=== PATIENT | male | born 1960 | race Caucasian/White ===

== ENCOUNTER 2016-08-29 14:53 | Outpatient (CLI) | payer MEDICARE, BC ==
[~2016-08-29] VITALS: Ht 162.6 cm; Wt 44.1 kg
[2016-08-29 15:50] VITALS: BP 94/67; PULSE 80; RESP 18; Ht 162.6 cm; Wt 44.1 kg
[2016-08-29] MEDS ORDERED: LACT20SO2 PO (16:08)
[2016-08-29] MEDS ORDERED: FURO40TA4 PO (16:08)
[2016-08-29] MEDS ORDERED: PANT40TA3 PO (16:08)
[2016-08-29] MEDS ORDERED: AMLO-147 PO (16:08)
[2016-08-29] MEDS ORDERED: HYDR-906 PO (16:08)
[2016-08-29] MEDS ORDERED: BACTDS PO (16:08)
--- NOTE | 2016-08-29 16:08 | PN ---
Date/Time of Note Date/Time of Note DATE: 08/29/16 TIME: 16:01 Outpatient Progress Note Chief Complaint Cirrhosis/anemia/malnutrition/esophageal varices/hypotension HPI Cirrhosis/patient has cirrhosis of liver, patient has ascites, patient had multiple time paracentesis, Anemia/history of anemia, slight weakness and tiredness, no hematemesis or melena, no bruises, slight fatigue, Malnutrition/patient is severely malnourished man, wasting of the upper and lower extremity muscles, Esophageal varices/patient has an esophageal varices, no hematemesis or melena, Hypotension/patient has slight low blood pressure, asymptomatic at present, Renal insufficiency/patient has chronic renal insufficiency, stage III, no nausea vomiting or pruritus, Review of Systems Const: No Fever, no chills, no Wt. loss, no Fatigue, normal appetite, no diaphoresis. Eyes: No pain, no discharge, no redness, no visual change, no foreign body. ENT: No pain, no bleeding, no congestion, no sore throat, no dysphagia, no discharge or rhinitis. Lymph: No adenopathy, no tender nodes, no lymphedema. Resp: No SOB, no cough, no sputum, no wheezing, no chest pain. CV: No chest pain, no palpitaions, no AIKEN, no PND, no edema. GI: Normal appetite, no pain, no nausea, no vomiting, no diarrhea, no blood, no constipation. Slight abdominal distention, and ascites, : No frequency, no urgency, no dysuria, no hematuria, no flank pain, no discharge, no bleeding. Musc: No bone/joint pain, no back pain, no neck pain, no knee pain, no restricted ROM. Skin: No rash, no skin lesions, no erythema, no laceration, no bruising, no pruritus. Neuro: No GUAMAN, no dizziness, no syncope, no seizure, no focal-weakness. Endo: No polyuria, no polydypsia, no dry-skin, no temp-intolerance. Psych: No hallucinations, no depression, no anxiety, no suicidal ideation. Ext: No edema, no pain, no ulcer, generalized weakness., wasting of muscles of upper and lower extremities, Physical Exam General Appearance: A 56 year-old [m male who appears well-developed, well- nourished, in no acute distress. HEENT: Head normocephalic, atraumatic. Pupils equal, round, reactive to light and accommodate. Sclerae are no jaundice. Nasal turbinates pink without erythema or nasal discharge. Mucous membranes pink and moist without lesions. Oropharynx clear without any exudate or discharge. NECK: Supple. Trachea midline, No thyromegaly, No cervical lymphadenopathy, No mass, No carotid bruits, No JVD, Carotid pulses 2+ bilaterally. PULMONARY: Clear to auscultaion bilaterally, No retractions, Chest expansion symmetric bilaterally, no rales, no ronchi, no dulness on percussion. CARDIAC: Normal SI and S2, Regular rate and rythm, no murmur, gallop, or rub. GASTROINTESTINAL: Abdomen is soft, non-tender, Non Rigid, No distention, Positive bowel sounds x4 quadrants, Liver normal abdominal distention slightly, ascites likely,. SKIN: Warm, dry, no rash, no bruise, no echmosis. No ecchymoses, EXTREMITIES: Bilateral lower extremities normal, no edema, no phlabitus, pulse palpable, no contracture. Wasting of muscles of upper and lower extremities, MUSCULOSKELETAL: Spine Normal, Non-tender, Normal range of motion, No swelling, no deformity, no clubbing, or cyanosis, the patient has no edema to bilateral lower extremities, dorsalis pedis pulses palpable bilaterally. NEUROLOGIC: The patient is awake, alert, oriented, responding to yes/no questions appropriately, moving all extremities, cranial nerve intact, normal strenght, normal power, normal coordination, normal gait. PMH Allergies none Past medical history Alcoholic cirrhosis/hypotension/protein malnutrition/elevated lipase/stage III kidney disease/PUD Social Hx No smoking or drinking at present, patient stopped drinking 3 years ago, Family Hx Noncontributory Assessment/Plan Impression Alcoholic cirrhosis/anemia/malnutrition/esophageal varices/hypertension/CRF stage III Plan Patient has all medication, medication reviewed, patient encouraged to continue to take all medication, watch for confusion, fall precaution, discussed with the family, Patient encouraged to follow with the primary care physician, CBC CMP amylase lipase in 2 weeks, Encourage to eat appropriate diet discussed with the patient and her family, MARIA D YEH MD Aug 29, 2016 16:08
== END 2016-08-29 16:37 | disposition home or self-care (01) ==
LOC: DCC 14:53
PROVIDERS: ATTEND Internal Medicine
DX: K70.30 Alcoholic cirrhosis of liver without ascites (principal); D64.9 Anemia, unspecified; N18.3 Chronic kidney disease, stage 3 (moderate); I12.9 Hypertensive chronic kidney disease with stage 1 through stage 4 chronic kidney disease, or unspecified chronic kidney disease; I85.00 Esophageal varices without bleeding
CPT/HCPCS: G0463

== ENCOUNTER 2016-09-12 11:24 | Outpatient (CLI) | payer MEDICARE, BC ==
[~2016-09-12] VITALS: Ht 162.6 cm; Wt 45.0 kg
[~2016-09-12 11:24] MED LIST: AMLO-147 PO; BACTDS PO; FURO40TA4 PO; HYDR-906 PO; LACT20SO2 PO; PANT40TA3 PO
[2016-09-12 11:29] VITALS: Ht 162.6 cm; Wt 45.0 kg
[2016-09-12 11:30] VITALS: BP 91/63; PULSE 81; RESP 18
--- NOTE | 2016-09-12 12:16 | PN ---
Date/Time of Note Date/Time of Note DATE: 09/12/16 TIME: 12:10 Outpatient Progress Note Chief Complaint Anemia/ascites/cirrhosis/esophageal varices/hypertension/renal insufficiency stage III HPI Anemia/no hematemesis or melena, no ecchymoses bruises or bleeding, patient is not taking iron tablet, Cirrhosis/patient has cirrhosis of liver, has ascites, no nausea vomiting, slight abdominal distention, no discomfort, no shortness of breath, Esophageal varices/patient has an esophageal varices, no hematemesis melena, Hypertension/no headache or dizziness, blood pressure under control, patient slightly on the low side, Renal insufficiency/no nausea vomiting or pruritus, slowly improving, Review of Systems Const: No Fever, no chills, no Wt. loss, no Fatigue, normal appetite, no diaphoresis. Eyes: No pain, no discharge, no redness, no visual change, no foreign body. ENT: No pain, no bleeding, no congestion, no sore throat, no dysphagia, no discharge or rhinitis. Lymph: No adenopathy, no tender nodes, no lymphedema. Resp: No SOB, no cough, no sputum, no wheezing, no chest pain. CV: No chest pain, no palpitaions, no AIKEN, no PND, no edema. GI: Normal appetite, no pain, no nausea, no vomiting, patient is abdominal distention, ascites present, no diarrhea, no blood, no constipation. : No frequency, no urgency, no dysuria, no hematuria, no flank pain, no discharge, no bleeding. Musc: No bone/joint pain, no back pain, no neck pain, no knee pain, no restricted ROM. Skin: No rash, no skin lesions, no erythema, no laceration, no bruising, no pruritus. Neuro: No GUAMAN, no dizziness, no syncope, no seizure, no focal-weakness. Endo: No polyuria, no polydypsia, no dry-skin, no temp-intolerance. Psych: No hallucinations, no depression, no anxiety, no suicidal ideation. Ext: No edema, no pain, no ulcer, no weakness. Physical Exam Vital Signs Date Time Temp Pulse Resp B/P Pulse Ox O2 Delivery O2 Flow Rate FiO2 09/12/16 11:30 97.7 81 18 91/63 100 Room Air General Appearance: A 56 year-old male who appears well-developed, well- nourished, in no acute distress.] HEENT: Head normocephalic, atraumatic. Pupils equal, round, reactive to light and accommodate. Sclerae are no jaundice. Nasal turbinates pink without erythema or nasal discharge. Mucous membranes pink and moist without lesions. Oropharynx clear without any exudate or discharge. NECK: Supple. Trachea midline, No thyromegaly, No cervical lymphadenopathy, No mass, No carotid bruits, No JVD, Carotid pulses 2+ bilaterally. PULMONARY: Clear to auscultaion bilaterally, No retractions, Chest expansion symmetric bilaterally, no rales, no ronchi, no dulness on percussion. CARDIAC: Normal SI and S2, Regular rate and rythm, no murmur, gallop, or rub. GASTROINTESTINAL: Abdomen is soft, non-tender, Non Rigid, abdominal distention, ascites present, positive bowel sounds x4 quadrants, Liver normal. SKIN: Warm, dry, no rash, no bruise, no echmosis. EXTREMITIES: Bilateral lower extremities normal, no edema, no phlabitus, pulse palpable, no contracture. MUSCULOSKELETAL: Spine Normal, Non-tender, Normal range of motion, No swelling, no deformity, no clubbing, or cyanosis, the patient has no edema to bilateral lower extremities, dorsalis pedis pulses palpable bilaterally. NEUROLOGIC: The patient is awake, alert, oriented, responding to yes/no questions appropriately, moving all extremities, cranial nerve intact, normal strenght, normal power, normal coordination, normal gait. Allergies Coded Allergies: No Known Drug Allergies (Verified Allergy, Unknown, 08/29/16) PMH No change Social Hx No change Family Hx No change Assessment/Plan Impression Anemia/ascites/cirrhosis/esophageal varices/hypertension/renal insufficiency stage III Plan Patient education done, patient not drinking any alcohol, patient is taking all medication except patient is not taking iron, patient advised to start iron, patient was not taking iron because of the daughter request, Patient advised to follow with the primary care physician, and also if patient has shortness of breath, or increased confusion, to let us know, Fall precaution, repeat the labs in few weeks, Medications Home Meds Reported Medications Pantoprazole* (Protonix*) 40 Mg Tablet.dr, 40 MG PO DAILY, TAB 08/29/16 Lactulose* (Lactulose*) 20 Gm/30 Ml Solution, 20 GM PO BID, ML 08/29/16 Furosemide* (Furosemide*) 40 Mg Tablet, 40 MG PO TID, TAB 08/29/16 Amlodipine Besylate* (Amlodipine Besylate*) 10 Mg Tablet, 10 MG PO DAILY, #30 TAB 08/29/16 Discontinued Reported Medications Hydrocodone/Acetaminophen ([place] 5-325 Tablet) 1 Each Tablet, 1 EACH PO Q6 for PAIN LEVEL 6-10, TAB 08/29/16 Sulfamethoxazole-Trimethoprim* (Bactrim* DS) 800-160 Mg Tab, 1 TAB PO DAILY, # 10 TAB 08/29/16 MARIA D YEH MD Sep 12, 2016 12:16
== END 2016-09-12 15:15 | disposition home or self-care (01) ==
LOC: DCC 11:24
PROVIDERS: ATTEND Internal Medicine
DX: D64.9 Anemia, unspecified (principal); N18.3 Chronic kidney disease, stage 3 (moderate); I12.9 Hypertensive chronic kidney disease with stage 1 through stage 4 chronic kidney disease, or unspecified chronic kidney disease; I85.00 Esophageal varices without bleeding; K74.60 Unspecified cirrhosis of liver